=== PATIENT | female | born 1975 | race Caucasian/White ===

== ENCOUNTER 2025-06-06 08:40 | Outpatient (CLI) | payer BC, SELFPAY ==
--- NOTE | 2025-06-06 08:53 | ECG_ITS ---
Test Date: 2025-06-06 09:03:27 Measurements Intervals [place] Rate: 72 P: 57 PA: 171 QRS: 29 QRSD: 92 T: 73 QT: 418 QTc: 458 Interpretive Statements SINUS RHYTHM NONSPECIFIC T-WAVE ABNORMALITY- ANTEROLAT/HGH LAT LEADS BASELINE ARTIFACT- II, III, AVF BORDERLINE ECG No previous ECG available for comparison Electronically Signed On 06-06-2025 10:08:53 CDT by [employer] [facility] D.O.
== END 2025-06-06 08:41 | disposition home or self-care (01) ==
LOC: ANHCARD 08:45
PROVIDERS: PCP Family Medicine; Visit Provider Student in an Organized Health Care Education/Training Program
DX: I51.7 Cardiomegaly (principal); R94.31 Abnormal electrocardiogram [ECG] [EKG]
CPT/HCPCS: 93005